=== PATIENT | male | born 1940 | race Caucasian/White ===

== ENCOUNTER 2025-08-10 09:42 | Emergency (ER) | payer OTHER, SELFPAY ==
[2025-08-10] VITALS (21 sets, daily range): BP systolic 112–141; BP diastolic 70–104; PULSE 52–134; TEMP 36.8; O2SAT 92–98; BMI 30.9
--- NOTE | 2025-08-10 10:02 | XR_ITS ---
The [address] [address] Patient Name: DALI BERRY MRN: [id number] date: 1940 Sex: M Assigned Patient Location: ED.MAIN Current Patient Location: ED.MAIN Accession/Order Number: [id number] Exam Date: 08/10/2025 10:45 Report Date: 08/10/2025 11:36 At the request of: CHERYL GARCIA Procedure: XR chest 1V Plain film chest Single view HISTORY: Tachycardia. Chest pain COMPARISON: None FINDINGS: SUPPORT DEVICES: None POSTSURGICAL CHANGES: None HEART: Within normal limits PULMONARY CARLOS: Within normal limits MEDIASTINUM: Unremarkable LUNGS AND PLEURA: No acute lung process, pleural effusion or pneumothorax identified. BONY STRUCTURES: Degenerative change ADDITIONAL FINDINGS None XR/XR chest 1V IMPRESSION: No acute process. Impression dictated by: Devang Nicole M.D. 08/10/2025 11:36 AM Dictation Location: [place] [address] Electronically authenticated by: [id number] Y Date: 08/10/2025 11:36
--- NOTE | 2025-08-10 10:02 | ECG_ITS ---
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 Measurements Intervals [place] Rate: 134 P: 270 FL: 166 QRS: 27 QRSD: 98 T: -52 QT: 298 QTc: 377 Interpretive Statements SINUS TACHYCARDIA 1570 with occasional ventricular premature complexes [address] ST DEPRESSION, CONSIDER ISCHEMIA, ANT-LAT LDS ST DEPRESSION, CONSIDER ISCHEMIA, INF LEADS 9150 abnormal ECG No previous ECG available for comparison Electronically Signed On 08-10-2025 14:38:14 EST by WILLEM LEON M.D.
--- NOTE | 2025-08-10 10:17 | ED.ARRPALP1 ---
HPI - Arrhythmia/Palpitations General Chief Complaint: Arrhythmia/Palpitations Stated Complaint: CHEST PAIN SOB Time Seen by Provider: 08/10/25 10:02 Source: patient Mode of arrival: walk-in Limitations: no limitations History of Present Illness HPI narrative: cc - fast heart rate Pt with AFib presents after he woke and noticed that his heart was racing. He has experienced this before, he told me, and the current symptoms - slight dizziness, fast heart rate, vision just a little off are all normal when I get an afib attack . No chest pain but admits to some left chest pressure . No recent illness or injury. No fever or chills. No cough or shortness of breath. Related Data Home Medications ?Medication ?Instructions ?Recorded ?Confirmed apixaban 5 mg tablet 5 mg PO BID 08/10/25 08/10/25 aspirin 81 mg tablet,delayed 81 mg PO DAILY 08/10/25 08/10/25 release (Adult Low Dose Aspirin) carvedilol 12.5 mg tablet 12.5 mg PO BID 08/10/25 08/10/25 cholecalciferol (vitamin D3) 125 125 mcg PO DAILY 08/10/25 08/10/25 mcg (5,000 unit) tablet isosorbide mononitrate 60 mg 60 mg PO DAILY 08/10/25 08/10/25 tablet,extended release 24 hr levothyroxine 137 mcg capsule 137 mcg PO DAILY 08/10/25 08/10/25 nitroglycerin 0.4 mg sublingual 0.4 mg sublingual Q5M 08/10/25 08/10/25 tablet rosuvastatin 40 mg tablet 40 mg PO DAILY 08/10/25 08/10/25 Allergies Allergy/AdvReac Type Severity Reaction Status Date / Time No Known Drug Allergies Allergy Verified 08/10/25 09:53 PFSH PFSH Social History Little interest or pleasure in doing things: not at all Feeling down, depressed, or hopeless: not at all Exam Narrative Exam Narrative: Nurses notes and vital signs reviewed and patient is not hypoxic. afebrile General: Well-appearing and in no apparent distress. Skin: Warm, dry, no pallor noted. Eye: Pupils are equal, round and EOMI. No scleral icterus. Ears, Nose, Mouth, and Throat: Oral mucosa is moist Cardiovascular: Regular Rate and Rhythm without murmur, gallop or rub. Respiratory: No accessory muscle use or respiratory distress. Lungs are clear to auscultation, no wheezing, rales or rhonchi Chest Wall: no tenderness, crepitus or subcutaneous emphysema. Musculoskeletal: normal ROM, no calf or popliteal tenderness, no lower extremity edema/swelling GI: Abdomen is soft, non-distended. Normal bowel sounds. No tenderness to palpation. No rebound, guarding, or rigidity noted. Neurological: A&O x4. No cranial nerve dysfunction observed. No truncal ataxia. Moves all extremities. Sensation intact. Psychiatric: Cooperative and interactive. Normal mood and affect. Constitutional Vital Signs, click to edit/add: Last Vital Signs Temp 98.2 F 08/10/25 09:53 Pulse 55 L 08/10/25 11:50 Resp 17 08/10/25 11:50 BP 141/70 08/10/25 11:31 Pulse Ox 97 08/10/25 11:50 O2 Del Method Room Air 08/10/25 10:04 Course Vital Signs Vital signs: Vital Signs Pulse Rate 133 H 08/10/25 09:51 Respiratory Rate 13 08/10/25 09:51 Temperature 98.2 F 08/10/25 09:53 Pulse Rate 55 L 08/10/25 11:50 Respiratory Rate 17 08/10/25 11:50 Blood Pressure 141/70 08/10/25 11:31 Pulse Oximetry 97 08/10/25 11:50 Oxygen Delivery Method Room Air 08/10/25 10:04 MDM - Arrhythmia/Palpitations MDM Narrative Medical decision making narrative: Patient with history of atrial fibrillation presents with symptoms typical of his prior rapid A-fib flares -fast heart rate, chest pressure, dizziness, slight visual change. Patient was placed on property assessment monitor and EKG obtained. Blood drawn and sent for evaluation. Portable chest x-ray obtained. Patient was ordered to receive 10 mg Cardizem IV. Blood testing was unremarkable, including BNP and troponin x 2. CXR negative. After receiving the Cardizem, he reverted to NSR and HR was initially in the 70s. His HR then decreased to 54bpm and repeat EKG revealed NSR. Patient and I discussed his results. 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 ED return if he worsens. Lab Data Attestation: I reviewed the patient's lab results. Labs: Lab Results 08/10/25 08/10/25 Range/Units 10:00 11:48 WBC 10.5 (4.0-11.0) 10^3/uL RBC 4.74 (4.70-6.10) 10^6/uL Hgb 13.5 L (14.0-18.0) g/dL Hct 40.6 L (42.0-54.0) % MCV 85.7 (80.0-94.0) fL MCH 28.5 (25.9-34.0) pg MCHC 33.3 (29.9-35.2) g/dL RDW 14.5 (11.0-15.0) % Plt Count 244 (150-450) 10^3/uL MPV 11.4 (9.5-13.5) fL Neut % (Auto) 74.3 (43.0-75.0) % Lymph % (Auto) 15.1 L (20.5-60.0) % Dunn % (Auto) 9.1 (1.7-12.0) % Eos % (Auto) 0.5 L (0.9-7.0) % Baso % (Auto) 0.3 (0.2-2.0) % Neut # (Auto) 7.8 H (1.4-6.5) 10^3/uL Lymph # (Auto) 1.6 (1.2-3.8) 10^3/uL Dunn # (Auto) 1.0 H (0.3-0.8) 10^3/uL Eos # (Auto) 0.1 (0.0-0.7) 10^3/uL Baso # (Auto) 0.0 (0.0-0.1) 10^3/uL Abs Immat Gran (auto) 0.07 H (0.00-0.03) 10^3/uL Imm/Tot Granulo (auto) 0.7 H (0.0-0.5) % Sodium 142 (136-145) mmol/L Potassium 4.1 (3.5-5.1) mmol/L Chloride 109 H (98-107) mmol/L Carbon Dioxide 24.5 (21.0-32.0) mmol/L Anion Gap 12.6 BUN 36.0 H (7.0-18.0) mg/dL Creatinine 1.18 (0.70-1.30) mg/dL Est GFR ( Amer) >60 (>=60 mL/min/1.73m^2) Est GFR (Non-Af Amer) 59 L (>=60 mL/min/1.73m^2) BUN/Creatinine Ratio 30.5 Glucose 127 H (74-106) mg/dL Calcium 9.3 (8.5-10.1) mg/dL Magnesium 2.0 (1.8-2.4) mg/dL Troponin I High Sens 57.6 59.5 (4.0-76.1) pg/mL NT-Pro-B Natriuret Pep 1579.0 (<=1800.0) pg/mL Imaging Data Chest x-ray: Attestation: I have reviewed the pertinent imaging results. Radiologist's impression: ITS Impressions Chest X-Ray 08/10/25 10:02 IMPRESSION: No acute process. Impression dictated by: Devang Nicole M.D. 08/10/2025 11:36 AM Dictation Location: [facility] Electronically authenticated by: [id number] Y Date: 08/10/2025 11:36 ECG Data Attestation: I personally reviewed and interpreted this ECG as follows: Interpretation: EKG interpretation:Emergency Department physician interpretation. Rapid atrial fibrillation at 134bpm. Normal axis, normal intervals. Nonspecific ST-T wave changes without no ST segment elevation or depression. Repeat EKG after conversion to normal sinus rhythm following Cardizem administration = EKG interpretation:Emergency Department physician interpretation.Normal sinus rhythm at 54bpm.Normal axis, normal intervals and no ST segment elevation or depression. Discharge Plan Discharge Chief Complaint: Arrhythmia/Palpitations Clinical Impression: Atrial fibrillation with rapid ventricular response Patient Disposition: Home, Self-Care Time of Disposition Decision: 12:39 Prescriptions / Home Meds: No Action apixaban 5 mg tablet 5 mg PO BID rosuvastatin 40 mg tablet 40 mg PO DAILY levothyroxine 137 mcg capsule 137 mcg PO DAILY cholecalciferol (vitamin D3) 125 mcg (5,000 unit) tablet 125 mcg PO DAILY nitroglycerin 0.4 mg tablet, sublingual 0.4 mg sublingual Q5M Rx Instructions: do not exceed 3 doses per episode isosorbide mononitrate 60 mg tablet extended release 24 hr 60 mg PO DAILY carvedilol 12.5 mg tablet 12.5 mg PO BID Rx Instructions: must administer with a meal/food aspirin [Adult Low Dose Aspirin] 81 mg tablet,delayed release (DR/EC) 81 mg PO DAILY Print Language: Lao Instructions: A-fib (Atrial Fibrillation) (ED) Referrals: Physician,Non-Staff, MD [Primary Care Provider] - 1 week Referral Note: [facility] [place]
[2025-08-10 10:19] LABS: Hematocrit 40.6 % (42.0-54.0); Hemoglobin 13.5 g/dL (14.0-18.0); Immature Granulocytes Abs Auto 0.07 10^3/uL (0.00-0.03); Immature Granulocytes Pct Auto 0.7 % (0.0-0.5); Lymphocytes Absolute Auto 1.6 10^3/uL (1.2-3.8); Mean Corpuscular HGB Conc 33.3 g/dL (29.9-35.2); Mean Corpuscular Hemoglobin 28.5 pg (25.9-34.0); Mean Corpuscular Volume 85.7 fL (80.0-94.0); Platelet Count 244 10^3/uL (150-450); Red Blood Count 4.74 10^6/uL (4.70-6.10); White Blood Count 10.5 10^3/uL (4.0-11.0)
[2025-08-10] MEDS: DILTIAZEM HCL 25 MG/5 ML VIAL 10 MG IV (10:21)
[2025-08-10] MEDS: 0.9 % SODIUM CHLORIDE 1,000 ML 500 ML IV (10:23)
[2025-08-10 10:41] LABS: Anion Gap 12.6; Blood Urea Nitrogen 36.0 mg/dL (7.0-18.0); Calcium 9.3 mg/dL (8.5-10.1); Carbon Dioxide 24.5 mmol/L (21.0-32.0); Chloride 109 mmol/L (98-107); Estimated GFR (African America >60 (>=60 mL/min/1.73m^2); Estimated GFR (Non-African Ame 59 (>=60 mL/min/1.73m^2); Glucose 127 mg/dL (74-106); Magnesium 2.0 mg/dL (1.8-2.4); NT Pro B Type Natriuretic Pept 1579.0 pg/mL (<=1800.0); Potassium 4.1 mmol/L (3.5-5.1); Sodium 142 mmol/L (136-145)
--- NOTE | 2025-08-10 11:33 | ECG_ITS ---
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 Measurements Intervals [place] Rate: 54 P: 9 SD: 188 QRS: 30 QRSD: 88 T: 19 QT: 402 QTc: 387 Interpretive Statements 1100 Sinus rhythm 1970 with occasional ectopic premature complexes 4068 Nonspecific [place] abnormality 9140 abnormal rhythm ECG Compared to ECG 08/10/2025 09:50:52 Atrial flutter no longer present Ventricular premature complex(es) no longer present ST (T wave) deviation no longer present Possible ischemia no longer present Electronically Signed On 08-10-2025 14:47:09 EST by WILLEM LEON M.D.
== END 2025-08-10 12:54 | disposition home or self-care (01) ==
PROVIDERS: Emergency Provider Emergency Medicine
DX: I48.91 Unspecified atrial fibrillation (principal); R06.02 Shortness of breath
CPT/HCPCS: 36415; 71045; 80048; 83735; 83880; 84484; 85025; 93005; 96361; 96374; 99285

== ENCOUNTER 2025-08-12 07:57 | Outpatient (RCR) | payer OTHER, SELFPAY | END 2025-09-20 09:30 | disposition home or self-care (01) | LOC: PT 07:57 | PROVIDERS: Visit Provider Physician Assistant | DX: M75.102 Unspecified rotator cuff tear or rupture of left shoulder, not specified as traumatic (principal); M75.22 Bicipital tendinitis, left shoulder | CPT/HCPCS: 97110; 97161 ==